=== PATIENT | female | born 2000 | race Caucasian/White ===

== ENCOUNTER 2019-11-07 07:50 | Outpatient (CLI) | payer OTHER, SELFPAY | END 2019-11-07 07:51 | disposition home or self-care (01) | LOC: ANHAUDIO 07:52 | PROVIDERS: PCP Family Medicine; Visit Provider Otolaryngology | DX: H91.91 Unspecified hearing loss, right ear (principal) | CPT/HCPCS: 92557; 92567 ==

== ENCOUNTER 2020-03-21 07:05 | Outpatient (NON) | payer OTHER, SELFPAY ==
[2020-03-22 18:46] LABS: SARS-CoV-2 RNA PCR Negative
== END 2020-03-21 07:06 ==
PROVIDERS: Family Provider Pediatrics; PCP Family Medicine; Visit Provider Physician Assistant
DX: R68.89 Other general symptoms and signs (principal); Z20.822 Contact with and (suspected) exposure to COVID-19
CPT/HCPCS: C9803; U0003; U0005

== ENCOUNTER → 2020-04-02 06:50 | Outpatient (CLI) | payer OTHER, SELFPAY ==
[2020-04-02 22:34] LABS: SARS-CoV-2 RNA PCR Negative
== END ==
PROVIDERS: PCP Family Medicine; Visit Provider Family Medicine
DX: Z20.822 Contact with and (suspected) exposure to COVID-19 (principal); R68.89 Other general symptoms and signs
CPT/HCPCS: C9803; U0003; U0005

== ENCOUNTER 2020-11-30 15:47 | Emergency (ER) | payer OTHER, SELFPAY ==
[2020-11-30 15:54] VITALS: BP 120/80; PULSE 100; RESP 16; TEMP 36.9; O2SAT 100
--- NOTE | 2020-11-30 16:12 | ED.URI ---
HPI - URI/Sore Throat General Chief Complaint: Upper Respiratory Infection Stated Complaint: Sore Throat Time Seen by Provider: 11/30/20 16:12 Source: patient and RN notes reviewed Mode of arrival: ambulatory Limitations: no limitations History of Present Illness HPI Narrative: 19-year-old female presents concern for sore throat, rhinorrhea, nasal congestion, nausea, headache, cough. Reports symptoms started yesterday. 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 Reports she was doing Covid testing for patients earlier this week. She reports history of strep infections. Reports taking Tylenol. Denies shortness of breath, fever. MD elicited complaint: sore throat Related Data Allergies Allergy/AdvReac Type Severity Reaction Status Date / Time amoxicillin Allergy Unknown hives Verified 11/30/20 15:54 Review of Systems Review of Systems: CONSTITUTIONAL: Denies malaise, chills, sweats, or fever. EYES: Denies visual changes, redness, or discharge. ENT: Reports rhinorrhea, congestion, sore throat. Denies sinus pain, otalgia CARDIOVASCULAR: Denies chest pain, palpitations, or edema. RESPIRATORY: Reports cough. Denies dyspnea. GASTROINTESTINAL: Denies abdominal pain, vomiting, diarrhea. Reports nausea SKIN: Denies rash or itching. MUSCULOSKELETAL: Denies myalgia. NEUROLOGIC: Reports headache. All systems reviewed & are unremarkable except as noted in HPI and below PMFSH Past Medical History Medical History (Updated 11/30/20 @ 16:27 by Codie Soto NP) Eczema Pharyngitis Surgical History Surgical History (Updated 01/03/20 @ 10:33 by Audrey Ramos PA-C) History of wisdom tooth extraction Family History Family History (Updated 01/03/20 @ 10:35 by Audrey Ramos PA-C) Father Hypertension Prediabetes Mother Epilepsy Sibling Patient's brother is in good health Grandparent Diabetes mellitus Cancer Social History Social History (Updated 02/05/20 @ 09:57 by Sydney Henley CMA) Social History: single Smoking status: Never smoker Second hand tobacco smoke exposure: No Alcohol intake: never Substance use: former Substance use type: marijuana Gender identity (if verbalized by the patient): Female Comments At time of signature, agree with nursing past medical, surgical, social and family history. There is no relevant family history pertinent to the presenting complaint Exam Narrative: GENERAL: Well-appearing, well-nourished, and in no acute distress. HEAD: Normocephalic EYES: PERRLA, conjunctivae clear ENT: Nares clear, clear discharge. Mucous membranes moist. TM pearly hernandez with dull light reflex bilaterally; no tragal tenderness. Oropharynx mildly erythematous without lesions. Tonsils not enlarged and without exudate, no drooling, no hoarseness, no trismus, uvula midline. NECK: Supple. No lymphadenopathy CHEST: Clear to auscultation, breath sounds equal. No wheezing, rhonchi, rales, or stridor. No respiratory distress, speaks in full sentences. HEART: Regular rate and rhythm. No murmur heard. SKIN: Warm, dry, no rash. NEURO: Alert and oriented x3. PSYCH: Normal mood and affect Course Course Emergency Course: Patient is aware of diagnosis, understands and agrees to treatment plan. Anticipatory guidance given. Patient agrees to follow-up as directed and is aware of reasons to seek care at the emergency department. Portions of this record may have been created with voice recognition software Vital Signs Vital signs: Vital Signs Temperature 98.5 F 11/30/20 15:54 Pulse Rate 100 11/30/20 15:54 Respiratory Rate 16 11/30/20 15:54 Blood Pressure 120/80 11/30/20 15:54 Pulse Oximetry 100 11/30/20 15:54 Temperature 98.5 F 11/30/20 15:54 Pulse Rate 100 11/30/20 15:54 Respiratory Rate 16 11/30/20 15:54 Blood Pressure 120/80 11/30/20 15:54 Pulse Oximetry 100 11/30/20 15:54 Reviewed. [facility] - [facility]
[2020-12-01 20:20] LABS: SARS-CoV-2 RNA PCR Negative
== END 2020-11-30 16:48 | disposition home or self-care (01) ==
PROVIDERS: Emergency Provider Nurse Practitioner; PCP Family Medicine
DX: J06.9 Acute upper respiratory infection, unspecified (principal); Z20.822 Contact with and (suspected) exposure to COVID-19
CPT/HCPCS: 87081; 87426; 87880; 99213; C9803; G0463; U0003; U0005

== ENCOUNTER 2021-09-21 13:31 | Outpatient (CLI) | payer OTHER, SELFPAY ==
--- NOTE | ~2021-09-21 | MR_ITS ---
EXAMINATION: MR brain/brain stem wo/w con DATE: 09/21/2021 14:27 INDICATION: Migraine headache. TECHNIQUE: Magnetic resonance imaging (MRI) of the brain and brainstem was performed without and with 18 mL MultiHance intravenous contrast. COMPARISON: None. FINDINGS: There is no intracranial hemorrhage, acute infarction, or abnormal intracranial mass lesion . The ventricles are normal in size. The orbits are normal. The paranasal sinuses are clear. There is a right mastoid effusion. IMPRESSION: 1. Normal brain. Reviewed, dictated and finalized at location A. IMPRESSION: 1. Normal brain.
[2021-09-21 14:08] LABS: Estimated Glomerular Filt Rate > 60
== END 2021-09-21 13:32 | disposition home or self-care (01) ==
PROVIDERS: PCP Family Medicine; Visit Provider Family Medicine
DX: H53.9 Unspecified visual disturbance (principal); G43.909 Migraine, unspecified, not intractable, without status migrainosus
CPT/HCPCS: 70553; A9577

== ENCOUNTER 2022-02-02 00:43 | Day surgery (SDC) | payer OTHER, SELFPAY ==
[2022-01-25 14:11] VITALS: BMI 31.4
[2022-02-02 08:15] VITALS: BP 129/85; PULSE 82; RESP 18; TEMP 36.3; O2SAT 100; BMI 31.6
[2022-02-02] MEDS: LACTATED RINGERS 1,000 ML 150 ML IV CONT (08:37)
--- NOTE | 2022-02-02 08:38 | WPDANESEPPF ---
Anes - Initial Pre Proc Eval Procedure: Operation Date: 02/02/22 09:30 Proposed Procedures p Esophagogastroduodenoscopy & Colonoscopy - Hair Laguna MD Date/Time: 02/02/22 08:38 Surgeon: Hair Laguna MD Pre Op Diagnosis: nausea, diarrhea Patient Data Age: 21 Gender: F Height: 1.57 m Weight: 78.3 kg Last Vital Signs Temp 97.4 F L 02/02/22 08:15 Pulse 82 02/02/22 08:15 Resp 18 02/02/22 08:15 BP 129/85 02/02/22 08:15 Pulse Ox 100 02/02/22 08:15 O2 Del Method Room Air 02/02/22 08:15 Allergies Allergy/AdvReac Type Severity Reaction Status Date / Time amoxicillin Allergy Unknown hives Verified 02/02/22 08:19 Home Medications Medication Instructions Recorded Confirmed Type cetirizine 5 mg-pseudoephedrine ER 1 tablet PO Q12H PRN nasal 11/30/20 02/02/22 Rx 120 mg tablet,extended congestion #12 tabs release,12hr (Zyrtec-D) medroxyprogesterone 150 mg/mL 150 mg IM [id number] #1 mL 03/06/21 02/02/22 Rx intramuscular syringe (Depo-Provera) topiramate 25 mg tablet See Rx Instructions .Route 04/25/21 02/02/22 Rx .COMPLEX #60 tabs escitalopram oxalate 10 mg tablet 20 mg PO DAILY 10/27/21 02/02/22 History (Lexapro) ondansetron 4 mg disintegrating 4 mg PO Q6H PRN nausea and 10/27/21 02/02/22 Rx tablet vomiting #10 tabs hyoscyamine sulfate 0.125 mg 0.125 mg PO .every 6 hours PRN 10/28/21 02/02/22 Rx tablet (Levsin) abdominal pain #120 tabs hydroxyzine HCl 25 mg tablet 25 mg PO HS PRN Insomnia 01/25/22 02/02/22 History Patient hx anesthesia problems: none Family hx anesthesia problems: none Results Review: All pre-operative results and documents have been reviewed as part of the pre-operative evaluation. [facility] Past Medical History Medical History Diarrhea Eczema Pharyngitis Surgical History Surgical History History of wisdom tooth extraction Family History Family History Father Hypertension Prediabetes Mother Epilepsy Cholecystectomy planned Sibling Patient's brother is in good health Grandparent Diabetes mellitus Cancer Social History Social History Social History: Single Smoking status: Never smoker Second hand tobacco smoke exposure: No Alcohol intake: current Alcohol use details: Occasionally Substance use: current Substance use type: marijuana Other substance usage details: Weekly Last use: Last night was the last usage. Living arrangements: with family Additional living arrangements comments: Pt lives with her boyfriend. Gender identity (if verbalized by the patient): Female Sexual Orientation (if Verbalized by the Patient): Straight or Heterosexual Anes - Eval Final PreProcedure Day of Procedure 02/02/22 08:38 Patient weight: obese Heart: regular rate and rhythm Lungs: clear to auscultation Airway: Mallampati scale class II Neurological: alert and oriented Last oral intake: >/= 8 hours ASA classification: II Emergent: no Anesthetic plan: proceed Anesthesia type and monitoring: general GIVS and standard monitoring Results Review: All pre-operative results and documents have been reviewed as part of the pre-operative evaluation. Informed Consent: The patient's anesthetic plan and its attendant risks and benefits were discussed with the patient/family/POA. Questions were solicited and answers provided to the satisfaction of the patient/family/POA.
--- NOTE | 2022-02-02 08:52 | PM.HPGS ---
History of Present Illness History of Present Illness Consent: Risks, benefits, and alternatives have been discussed and questions answered. Patient agrees to proceed with procedure. Chief complaint: nausea, diarrhea Narrative: Abena Sanz is a 21 year old female with nausea using zofran prn, also intermittent diarrhea with abdominal cramping, using hyoscyamine as needed that is helping, never had scopes. Review of Systems Constitutional: Constitutional: Denies headache(s) and Denies weakness Eyes: Eyes: Denies blurry vision ENT: Reports Normal hearing present, Denies headache(s) and Denies neck pain Cardiovascular: Cardiovascular: Denies chest pain and Denies dyspnea Respiratory: Respiratory: Denies dyspnea Gastrointestinal: Gastrointestinal: Reports no additional gastrointestinal complaints Genitourinary: Genitourinary: Denies dysuria Musculoskeletal: Musculoskeletal: Denies neck pain Integumentary/Breasts: Skin/Breast: Denies dry skin Neurologic: Reports Normal hearing present, Denies headache(s) and Denies weakness Psychiatric: Psychiatric: Denies anxiety Endocrine: Endocrine: Denies change in body appearance Hematologic/Lymphatic: Hematologic/Lymphatic: Denies easy bleeding Allergic/Immunologic: Allergic/Immunologic: Denies urticaria PMFSH Past Medical History Medical History Diarrhea Eczema Pharyngitis Surgical History Surgical History History of wisdom tooth extraction Family History Family History Father Hypertension Prediabetes Mother Epilepsy Cholecystectomy planned Sibling Patient's brother is in good health Grandparent Diabetes mellitus Cancer Social History Social History Social History: Single Smoking status: Never smoker Second hand tobacco smoke exposure: No Alcohol intake: current Alcohol use details: Occasionally Substance use: current Substance use type: marijuana Other substance usage details: Weekly Last use: Last night was the last usage. Living arrangements: with family Additional living arrangements comments: Pt lives with her boyfriend. Gender identity (if verbalized by the patient): Female Sexual Orientation (if Verbalized by the Patient): Straight or Heterosexual Meds Home Medications and Allergies Home Medications Medication Instructions Recorded Confirmed Type cetirizine 5 mg-pseudoephedrine ER 1 tablet PO Q12H PRN nasal 11/30/20 02/02/22 Rx 120 mg tablet,extended congestion #12 tabs release,12hr (Zyrtec-D) medroxyprogesterone 150 mg/mL 150 mg IM [id number] #1 mL 03/06/21 02/02/22 Rx intramuscular syringe (Depo-Provera) topiramate 25 mg tablet See Rx Instructions .Route 04/25/21 02/02/22 Rx .COMPLEX #60 tabs escitalopram oxalate 10 mg tablet 20 mg PO DAILY 10/27/21 02/02/22 History (Lexapro) ondansetron 4 mg disintegrating 4 mg PO Q6H PRN nausea and 10/27/21 02/02/22 Rx tablet vomiting #10 tabs hyoscyamine sulfate 0.125 mg 0.125 mg PO .every 6 hours PRN 10/28/21 02/02/22 Rx tablet (Levsin) abdominal pain #120 tabs hydroxyzine HCl 25 mg tablet 25 mg PO HS PRN Insomnia 01/25/22 02/02/22 History Allergies Allergy/AdvReac Type Severity Reaction Status Date / Time amoxicillin Allergy Unknown hives Verified 02/02/22 08:19 Vital Signs Vital Signs - 24 hr 02/02/22 08:15 Temperature 97.4 F L Pulse Rate 82 Respiratory Rate 18 Blood Pressure 129/85 Pulse Oximetry 100 Oxygen Delivery Room Air Exam Const: General: comfortable and no acute distress HENMT: Face/Nose/Sinus: Normal nares present Eyes: General: appearance normal, both eyes and all related structures Neck: Neck: no JVD Resp: Auscultation: clear to auscultation bilaterally Cardio: Rate: regular rate Rhy
[2022-02-02 09:15] VITALS: BP 111/66; PULSE 74; RESP 25; O2SAT 98
[2022-02-02 09:25] VITALS: BP 107/78; PULSE 85; RESP 20; O2SAT 98
[2022-02-02 09:35] VITALS: BP 110/76; PULSE 87; RESP 20; O2SAT 99
--- NOTE | 2022-02-02 09:38 | SUR.OPER ---
EGD START: 855; END: 858. COLONOSCOPY START: 902; END: 911.
== END 2022-02-02 09:47 | disposition home or self-care (01) ==
PROVIDERS: PCP Family Medicine; Visit Provider Internal Medicine Gastroenterology
PROC: 0DJ08ZZ Inspection of Upper Intestinal Tract, Via Natural or Artificial Opening Endoscopic (ICD-10-PCS; CPT 43235; principal; 2022-02-02 09:30)
DX: K58.0 Irritable bowel syndrome with diarrhea (principal); K29.70 Gastritis, unspecified, without bleeding; F12.90 Cannabis use, unspecified, uncomplicated; E66.9 Obesity, unspecified; Z68.31 Body mass index [BMI] 31.0-31.9, adult
CPT/HCPCS: 45380; 43239; 88305; J2704; J7120

== ENCOUNTER → 2023-01-06 11:12 | Outpatient (CLI) | payer OTHER, SELFPAY ==
--- NOTE | ~2023-01-06 | US_ITS ---
EXAMINATION: US soft tissue head and neck DATE: 01/06/2023 11:34 INDICATION: Left neck mass. TECHNIQUE: Multiple grayscale and Doppler ultrasound images of the head and neck were obtained. COMPARISON: None FINDINGS: Right thyroid lobe measures 4.2 x 1.5 x 1.3 cm. Left thyroid lobe measures 4.0 x 1.3 x 1.2 cm. The thyroid streaks normal echogenicity and vascularity. There is no abnormal mass or lymphadenop athy. IMPRESSION: 1. No abnormal mass or lymphadenopathy in the patient's area of concern in left neck. Reviewed, dictated and finalized at location A. [employer]
== END ==
PROVIDERS: PCP Nurse Practitioner Family; Visit Provider Nurse Practitioner Family
DX: R22.1 Localized swelling, mass and lump, neck (principal)
CPT/HCPCS: 76536